=== PATIENT | female | born 1985 | race Caucasian/White ===

== ENCOUNTER → 2020-03-08 13:07 | Outpatient (BNVA) | payer BC, SELFPAY | PROVIDERS: Family Provider Family Medicine; PCP Family Medicine; Visit Provider Obstetrics & Gynecology | DX: Z32.01 Encounter for pregnancy test, result positive (principal) | CPT/HCPCS: 81025 ==

== ENCOUNTER → 2020-03-13 12:59 | Outpatient (BNVA) | payer BC, SELFPAY | PROVIDERS: Family Provider Family Medicine; PCP Family Medicine; Visit Provider Obstetrics & Gynecology | DX: Z34.81 Encounter for supervision of other normal pregnancy, first trimester (principal); Z67.91 Unspecified blood type, Rh negative | CPT/HCPCS: 80053; 80307; 84315; 85027; 86592; 86762; 86803; 86850; 86900; 87340; 87491; 87591 ==

== ENCOUNTER → 2020-04-26 10:45 | Outpatient (BNVA) | payer BC, SELFPAY | PROVIDERS: Family Provider Family Medicine; PCP Family Medicine; Visit Provider Obstetrics & Gynecology | DX: O26.899 Other specified pregnancy related conditions, unspecified trimester (principal); Z67.91 Unspecified blood type, Rh negative; Z3A.00 Weeks of gestation of pregnancy not specified | CPT/HCPCS: 86850 ==

== ENCOUNTER → 2020-07-11 13:10 | Outpatient (BNVA) | payer BC, SELFPAY | PROVIDERS: Family Provider Family Medicine; PCP Family Medicine; Visit Provider Obstetrics & Gynecology | DX: O26.899 Other specified pregnancy related conditions, unspecified trimester (principal); Z67.91 Unspecified blood type, Rh negative; O26.892 Other specified pregnancy related conditions, second trimester | CPT/HCPCS: 82950; 84315; 85027; 86850 ==

== ENCOUNTER → 2020-09-04 13:12 | Outpatient (BNVA) | payer BC, SELFPAY | PROVIDERS: Family Provider Family Medicine; PCP Family Medicine; Visit Provider Obstetrics & Gynecology | DX: Z34.90 Encounter for supervision of normal pregnancy, unspecified, unspecified trimester (principal); Z67.91 Unspecified blood type, Rh negative | CPT/HCPCS: 84315; 87081 ==

== ENCOUNTER → 2020-09-20 10:36 | Outpatient (BNVA) | payer BC, SELFPAY | PROVIDERS: Family Provider Family Medicine; PCP Family Medicine; Visit Provider Obstetrics & Gynecology | DX: Z20.822 Contact with and (suspected) exposure to COVID-19 (principal) | CPT/HCPCS: 87635 ==

== ENCOUNTER 2020-09-25 23:41 | Inpatient (IN) | payer BC, SELFPAY ==
[2020-09-25 23:41] VITALS: BMI 38.1
[2020-09-25 23:42] VITALS: TEMP 36.6
[2020-09-25 23:50] VITALS: RESP 16; TEMP 36.9
[2020-09-25 23:52] VITALS: BP 117/70; PULSE 85
[2020-09-26] VITALS (18 sets, daily range): BP systolic 110–135; BP diastolic 60–79; PULSE 50–84; RESP 16; TEMP 36.1–36.9
[2020-09-26 00:21] LABS: Basophils # 0.1 10^3/uL (0.0-0.1); Basophils % 0.4 %; Eosinophils # 0.1 10^3/uL (0.0-0.8); Eosinophils % 0.4 %; Hematocrit 35.3 % (37.0-47.0); Hemoglobin 11.4 g/dL (11.5-15.3); Lymphocytes # 2.4 10^3/uL (0.8-4.8); Lymphocytes % 17.5 %; Mean Corpuscular HGB Conc 32.3 g/dL (30.0-36.0); Mean Corpuscular Hemoglobin 27.9 pg (28.0-34.0); Mean Corpuscular Volume 86.3 fL (81-99); Mean Platelet Volume 11.9 fL (7.4-10.4); Monocytes # 0.8 10^3/uL (0.2-0.9); Neutrophils # 10.39 10^3/uL (1.8-7.7); Neutrophils % 75.3 %; Nucleated Red Blood Cells % 0 %; Platelet Count 211 10^3/cmm (130-400); Red Blood Count 4.09 10^6/uL (4.1-5.3); Red Cell Distribution Width 13.4 % (12.1-15.1); White Blood Count 13.8 10^3/uL (4.0-10.0)
[2020-09-26] MEDS: oxytocin 30 UNIT/500 ML BAG 600 UNIT IV (01:12)
[2020-09-26] MEDS: lactated ringers 1,000 ML 999 ML IV (01:13)
[2020-09-26] MEDS: lidocaine 2% INJ 20 mL INJECTION (01:13)
--- NOTE | 2020-09-26 01:27 | P.PCNOB_ITS ---
Delivery Note: Date of delivery: September 26, 2020 - PRE-DELIVERY DIAGNOSIS: 34-year-old 3 para 2-0-0-2 at 39 weeks and 5 days Active labor, SROM Rh--RhoGam candidate GBS negative POST-DELIVERY DIAGNOSIS: Vaginal delivery on 09/26/2020 Rh--RhoGam candidate PROCEDURE: Vaginal delivery on 09/26/2020 ANESTHESIA: Local anesthesia with 2% lidocaine DELIVERING PHYSICIAN: Jordan Millan FACOG PRE-DELIVERY COURSE: Ms. Alexis is a 34-year-old 3 para 2-0-0-2 at 39 weeks and 4 days who presented to labor and delivery at age 11:30 PM on 09/25/2020 with reports of contractions that started about 6 PM and then started to get worse by around 10:00. She states that every 4 to 5 minutes. When she reached labor and delivery she had spontaneous rupture of membranes while coming in with clear fluid at 11:27 PM. Contractions started to get worse after that. tracing was overall category 1 rosita every 2 to 4 minutes. She was initially 4 cm, 60% and -3 station. She made rapid cervical change and was fully dilated at 12:53 AM on 09/26/2020 and 0 station and had the urge to push. DELIVERY NOTE: She was set up in lithotomy position and was pushing effectively. She was noted to be +3 station and continued pushing well. The head delivered in OSBALDO position, no nuchal cord was present. The shoulders and rest of the body followed with her next push. The baby's mouth and nose were suctioned and the baby was placed on the mother's belly. Once cord pulsations stopped the cord was clamped and cut. The placenta delivered spontaneously intact with membranes and was discarded. The fundus was noted to be firm and well contracted. The vagina and cervix were inspected and no cervical or sulcal lacerations were noted. First-degree vaginal laceration was noted which was repaired with a [id number] suture after infiltrating the area with 2% lidocaine. Baby sommer Arambula -born at 1 AM on 09/26/2020 with 8/9, weighing 7 pounds 9 ounces, 3420 g, 20-1/4 inches long. Placenta was delivered spontaneously intact with membranes at 1:06 AM. Cotyledons were intact , centrally inserted umbilical cord with 3 vessels noted. Estimated blood loss 150 mL. Complications-none, both baby and mother were left to recover in a stable condition This documentation was created by [employer] office technology instructor software (known for inherent office technology instructor error). Every effort was made to assure accuracy of office technology instructor. Any obvious errors or omissions should be clarified with the author of the document. Coding Level of Care Code Acute Account Developer for Stephenie Tate
[2020-09-26] MEDS: ibuprofen 800 mg tablet PO ×3 (08:46→21:57)
[2020-09-26] MEDS: docusate sodium 100 mg Capsule PO ×2 (08:46→18:06)
[2020-09-26] MEDS: prenatal vitamin Capsule 1 CAP PO (08:46)
[2020-09-26 13:09] LABS: Hematocrit 33.7 % (37.0-47.0); Hemoglobin 11.1 g/dL (11.5-15.3); Mean Corpuscular HGB Conc 32.9 g/dL (30.0-36.0); Mean Corpuscular Hemoglobin 28.4 pg (28.0-34.0); Mean Corpuscular Volume 86.2 fL (81-99); Mean Platelet Volume 11.6 fL (7.4-10.4); Platelet Count 185 10^3/cmm (130-400); Red Blood Count 3.91 10^6/uL (4.1-5.3); Red Cell Distribution Width 13.4 % (12.1-15.1); White Blood Count 14.8 10^3/uL (4.0-10.0)
[2020-09-26] MEDS: lanolin oint 7 gm 1 APPLIC TOPICAL (21:57)
[2020-09-27 05:19] VITALS: BP 126/62; PULSE 79
[2020-09-27 05:48] VITALS: RESP 18
--- NOTE | 2020-09-27 07:08 | P.DS_ITS ---
Discharge Providers Date of Admission: 09/25/20 23:41 Date of Discharge: September 27, 2020 Attending Provider at Admission: Jordan Vaz MD Attending Provider at Discharge: Jordan Vaz MD Primary Care Provider: PRE-DELIVERY DIAGNOSIS: 34-year-old 3 para 2-0-0-2 at 39 weeks and 5 days Active labor, SROM Rh--RhoGam candidate GBS negative POST-DELIVERY DIAGNOSIS: Vaginal delivery on 09/26/2020 Rh--RhoGam candidate PROCEDURE: Vaginal delivery on 09/26/2020 ANESTHESIA: Local anesthesia with 2% lidocaine DELIVERING PHYSICIAN: Jordan Millan FACOG PRE-DELIVERY COURSE: Ms. Alexis is a 34-year-old 3 para 2-0-0-2 at 39 weeks and 4 days who presented to labor and delivery at age 11:30 PM on 09/25/2020 with reports of contractions that started about 6 PM and then started to get worse by around 10:00. She states that every 4 to 5 minutes. When she reached labor and delivery she had spontaneous rupture of membranes while coming in with clear fluid at 11:27 PM. Contractions started to get worse after that. tracing was overall category 1 rosita every 2 to 4 minutes. She was initially 4 cm, 60% and -3 station. She made rapid cervical change and was fully dilated at 12:53 AM on 09/26/2020 and 0 station and had the urge to push. DELIVERY NOTE: She was set up in lithotomy position and was pushing effectively. She was noted to be +3 station and continued pushing well. The head delivered in OSBALDO position, no nuchal cord was present. The shoulders and rest of the body followed with her next push. The baby's mouth and nose were suctioned and the baby was placed on the mother's belly. Once cord pulsations stopped the cord was clamped and cut. The placenta delivered spontaneously intact with membranes and was discarded. The fundus was noted to be firm and well contracted. The vagina and cervix were inspected and no cervical or sulcal lacerations were not ed. First-degree vaginal laceration was noted which was repaired with a [id number]-lo-[id number] suture after infiltrating the area with 2% lidocaine. Baby sommer -Linda -born at 1 AM on 09/26/2020 with 8/9, weighing 7 pounds 9 ounces, 3420 g, 20-1/4 inches long. Placenta was delivered spontaneously intact with membranes at 1:06 AM. Cotyledons were intact , centrally inserted umbilical cord with 3 vessels noted. Estimated blood loss 150 mL. Complications-none, both baby and mother were left to recover in a stable condition HOSPITAL COURSE: She underwent an uncomplicated vaginal delivery on 09/26/2020. She did well on day 0 and was ambulating well, tolerating regular diet, voiding freely, passing flatus. She was breast-feeding without difficulty and bonding well with her daughter. Pain was well-controlled with by mouth pain medication. She denied nausea, vomiting, fever, chills, shortness of breath, leg pain. She had moderate vaginal bleeding. On day # 1 she continued to do well with stable vital signs and stable hemoglobin at 11.1. She was discharged home on day 1 in a stable condition, as she desired early discharge. Warning signs for endometritis, mastitis, DVT/PE were reviewed with her. Post delivery activity restrictions were also reviewed with her at all her questions were answered to her satisfaction. Plans on using vasectomy for contraception . EXAM AT DISCHARGE: Gen.: No acute distress Heart: S1-S2 heard, regular rate and rhythm Lungs: Clear to auscultation bilaterally Abdomen: Soft, fundus firm below umbilicus Legs: No calf tenderness, +1 pedal edema. CONDITION AT DISCHARGE: Stable This documentation was created by [employer] photoengraving supervisor software (known for inherent photoengraving supervisor error). Every effort was made to assure accuracy of photoengraving supervisor. Any obvious errors or omissions should be clarified with the author of the document. Reason for Visit Reason for Visit: Contractions Discharge Data Data Completed and Pending: Labs from last 24 hours 09/26/20 12:56 WBC 14.8 H RBC 3.91 L Hgb 11.1 L Hct 33.7 L MCV 86.2 MCH 28.4 MCHC 32.9 RDW 13.4 Plt Count 185 MPV 11.6 H Vitals: Last Vital Signs Temp 96.9 F L 09/26/20 15:12 Pulse 79 09/27/20 05:19 Resp 18 09/27/20 05:48 BP 126/62 09/27/20 05:19 Discharge Plan Discharge Patient Disposition: Home Condition: Stable Prescriptions: New ibuprofen 800 mg tablet 800 mg PO Q8H Qty: 30 RF: 0 docusate sodium 100 mg Capsule 100 mg PO BID PRN (Reason: constipation) Qty: 30 RF: 0 Continued fexofenadine PO DAILY PRNRF: 0 prenat.vits,kenny,uvf-[id number] Tablet 1 tab PO DAILY RF: 0 (DME) breast pump [Pump In Style Advanced] Device See Rx Instructions .ROUTE .MEDSUPPLY Qty: 1 RF: 0 Discharge Orders: Discharge Order (Routine); Ordered 09/27/20 Ordered By: Jordan Vaz Referrals: Jordan Vaz MD [Physician] - (6 week pp) Patient Instructions: Pre-eclampsia and Eclampsia (DC), Bleeding (DC), OB Discharge Report, OB Food/Drug Interaction Guide, Opioid Safety, OB Home Care, OB Proud Parent Packet, OB Vaginal Deliveries - [facility] Activity Restrictions/Additional Instructions: 6 weeks no heavy lifting and 6 weeks pelvic rest Discharge Attestations Time Spent in Discharge Care*: greater than 30 min Quality Metrics Clinical Quality Measures During this hospital stay, did patient experience: None Coding Level of Care Code Acute Chg FW DC note History History History 3 Term 3 Miscarriages/Ectopic 0 0 Living Children 3 Other History: 3 Para 3003, x 3 1---->07/12/2016---full-term vaginal delivery at 40 weeks and 1 day, baby boy weighing 8 lbs. 4 oz., SOO, by Dr. Bland at [facility] [place]. She had second- degree perineal tear. No or complications. 2---> 09/19/2018---full-term vaginal delivery at 39 weeks and 2 days, baby boy (CLARK) weighing [address] lbs[address] Bland at [facility] [place]. She had first- degree perineal tear. No or complications. 3---->09/26/2020---> full-term vaginal delivery and 39 weeks and 5 days, baby girl( linda/artie) weighing [address] Millan. she had a first-degree vaginal
[2020-09-27] MEDS: docusate sodium 100 mg Capsule PO (08:48)
[2020-09-27] MEDS: ibuprofen 800 mg tablet PO (08:48)
[2020-09-27] MEDS: prenatal vitamin Capsule 1 CAP PO (08:48)
[2020-09-27 10:53] VITALS: BP 133/78; PULSE 76; RESP 16; TEMP 36.1
[2020-09-27 10:54] VITALS: BP 133/78; PULSE 76
[2020-09-27 12:30] VITALS: BP 138/74; PULSE 75
[2020-09-27 12:47] VITALS: BP 138/74; PULSE 75
== END 2020-09-27 12:47 | disposition home or self-care (01) | DRG 807 ==
LOC: OPOB 23:54 → OBGYN 23:54
PROVIDERS: Admitting Provider Obstetrics & Gynecology; Family Provider Family Medicine; PCP Family Medicine; Visit Provider Obstetrics & Gynecology
DX: O36.0930 Maternal care for other rhesus isoimmunization, third trimester, not applicable or unspecified (principal); Z37.0 Single live birth; O70.0 First degree perineal laceration during delivery; Z3A.39 39 weeks gestation of pregnancy; Z80.1 Family history of malignant neoplasm of trachea, bronchus and lung; Z80.3 Family history of malignant neoplasm of breast; Z80.49 Family history of malignant neoplasm of other genital organs; Z82.3 Family history of stroke; Z82.49 Family history of ischemic heart disease and other diseases of the circulatory system
CPT/HCPCS: 36415; 36430; 59025; 59409; 83986; 84315; 85025; 85027; 85460; 86850; 86900; 90384; 99211

== ENCOUNTER → 2020-11-20 14:40 | Outpatient (BNVA) | payer BC, SELFPAY | PROVIDERS: Family Provider Family Medicine; PCP Family Medicine; Visit Provider Obstetrics & Gynecology | DX: Z12.4 Encounter for screening for malignant neoplasm of cervix (principal) | CPT/HCPCS: 88175 ==

== ENCOUNTER → 2020-11-28 15:07 | Outpatient (BNVA) | payer BC, SELFPAY | PROVIDERS: Family Provider Family Medicine; PCP Family Medicine; Visit Provider Obstetrics & Gynecology | DX: Z30.9 Encounter for contraceptive management, unspecified (principal) | CPT/HCPCS: 81025 ==

== ENCOUNTER → 2021-11-18 10:41 | Outpatient (BNVA) | payer BC, SELFPAY | PROVIDERS: Family Provider Family Medicine; PCP Family Medicine; Visit Provider Family Medicine | DX: S99.911A Unspecified injury of right ankle, initial encounter (principal); X58.XXXA Exposure to other specified factors, initial encounter; M79.89 Other specified soft tissue disorders | CPT/HCPCS: 73610 ==